=== PATIENT | female | born 1970 | race Caucasian/White ===

== ENCOUNTER 2023-04-03 12:21 | Emergency (ER) | payer MEDICAID, SELFPAY ==
[2023-04-03 13:16] LABS: #Basophils 0.1 thou/uL (0.0-0.2); #Eosinphils 0.2 thou/uL (0.0-0.7); #Monocytes 0.5 thou/uL (0.11-0.59); #Neutrophils 2.9 thou/uL (1.40-6.50); %Eosinophils 2.5 % (0.0-10.0); %Lymphocytes 48.2 % (21.0-51.0); %Monocytes 7.6 % (0.0-10.0); %Neutrophils 40.3 % (42.0-75.0); Hematocrit 39.4 % (36.0-47.0); Hemoglobin 12.9 g/dL (12.0-16.0); Mean Corpuscular HGB CONC 32.7 g/dL (32.0-36.0); Mean Corpuscular Hemoglobin 30.3 pg (27.0-31.0); Mean Corpuscular Volume 92.5 fl (78.0-98.0); Mean Platelet Volume 10.1 fL (7.4-10.4); Platelet Count 316 10x3/uL (130-400); RBC Distribution Width 14.7 % (11.5-14.5); Red Blood Cell (RBC) Count 4.26 mill/uL (4.20-5.40); White Blood Cell (WBC) Count 7.1 10x3/uL (4.8-10.8)
[2023-04-03 13:39] LABS: Albumin 4.5 g/dL (3.5-5.0)
[2023-04-03 13:40] LABS: Chloride 106 mmol/L (98-107)
[2023-04-03 13:41] LABS: Calcium 9.5 mg/dL (7.8-10.44); Potassium 3.8 mmol/L (3.5-5.1); Sodium 139 mmol/L (136-145)
[2023-04-03 13:42] LABS: Glucose 77 mg/dL (70-105); Protein, Total 6.5 g/dL (6.0-8.3)
[2023-04-03 13:43] LABS: Carbon Dioxide 25 mmol/L (22-29)
[2023-04-03 13:44] LABS: Bilirubin, Total 0.5 mg/dL (0.2-1.2); Troponin I Less than 0.010 ng/mL (< 0.028)
[2023-04-03 13:45] LABS: Alkaline Phosphatase 86 U/L (40-110); Calc. Creatinine Clearance 0 mL/min (70-130); Estimated GFR 92
[2023-04-03 13:46] LABS: BUN (Urea Nitrogen) 13 mg/dL (9.8-20.1)
[2023-04-03 13:47] LABS: AST (SGOT) 18 U/L (5-34)
[2023-04-03 13:48] LABS: ALT (SGPT) 14 U/L (8-55)
[2023-04-03] MEDS ORDERED: Midazolam HCl 2 mg/2 ml Vial ONE (14:20)
[2023-04-03] MEDS ORDERED: Aspirin Chewable 81 MG TAB ONE (14:20)
[2023-04-03 14:40] LABS: Anion Gap 12 mmol/L (10-20)
[2023-04-03 16:25] LABS: Troponin I Less than 0.010 ng/mL (< 0.028)
== END 2023-04-03 17:24 | disposition home or self-care (01) ==
LOC: ERS 12:21
DX: R07.9 Chest pain, unspecified (principal); F41.9 Anxiety disorder, unspecified; I10 Essential (primary) hypertension; F17.210 Nicotine dependence, cigarettes, uncomplicated; Z79.899 Other long term (current) drug therapy; Z79.01 Long term (current) use of anticoagulants
CPT/HCPCS: 36415; 71045; 80053; 83880; 84484; 85025; 85379; 93005; 96374; J2250